=== PATIENT | female | born 1990 | race American Indian/Alaskan Native ===

== ENCOUNTER 2020-06-14 17:12 | Emergency (ER) | payer OTHER ==
[2020-06-14 17:51] LABS: Bilirubin,Urine NEG (Negative); Blood,Urine NEG (Negative); Color,Urine Yellow (Yellow); Mucus,Urine 1+ /HPF; Protein,Urine <15 mg/dL mg/dL (Negative)
[2020-06-14 18:54] LABS: Basophils % (Auto) 0.7 % (0.0-1.8); Eosinophils % (Auto) 0.2 % (0.0-4.3); Hematocrit 36.2 % (30.3-42.9); Hemoglobin 12.8 gm/dl (10.1-14.3); Lymphocytes # (Auto) 1.4 K/mm3 (1.2-5.4); Lymphocytes % (Auto) 21.1 % (13.4-35.0); Mean Corpuscular HGB Conc 35 % (30-34); Mean Corpuscular Volume 95 fl (79-97); Monocytes # (Auto) 0.8 K/mm3 (0.0-0.8); Monocytes % (Auto) 11.8 % (0.0-7.3); Platelet Count 293 K/mm3 (140-440); Red Blood Count 3.81 M/mm3 (3.65-5.03); Red Cell Distribution Width 12.7 % (13.2-15.2)
[2020-06-14 18:59] LABS: Alanine Aminotransferase 10 units/L (7-56); Albumin 4.3 g/dL (3.9-5); Blood Urea Nitrogen 6 mg/dL (7-17); Calcium 9.9 mg/dL (8.4-10.2); Hemolysis Index 2
[2020-06-14 19:00] LABS: BUN/Creatinine Ratio 12
[2020-06-14 19:07] VITALS: BP 119/79
[2020-06-14] MEDS ORDERED: diphenhydrAMINE 50 MG/ML VIAL IV ONE (21:56)
[2020-06-14] MEDS ORDERED: METOCLOPRAMIDE 10 MG/2 ML INJ IV ONE (21:56)
[2020-06-14] MEDS ORDERED: SODIUM CHLORIDE 0.9% 1000 ML 1,000 ML IV ONE (21:56)
[2020-06-14] MEDS ORDERED: FAMOTIDINE 20 MG/2 ML INJ IV ONE (21:56)
--- NOTE | 2020-06-14 22:54 | Emergency Department Report ---
ED N/V/D HPI - General Chief complaint: Nausea/Vomiting/Diarrhea Stated complaint: PANIC ATTACK/JOINTS LOCKED Source: patient Mode of arrival: Ambulatory Limitations: No Limitations - History of Present Illness Initial comments: Patient is a A0 29-year-old -Stateless female who is approximately 11 weeks gestation who presents to the ED with complaint of acute onset persistent intractable nausea and vomiting for the last 7 days but worse in the last 2 days. Patient states that she has not been able to keep anything down including food and water in the last 2 days. Patient states that she was given a prescription of antiemetics, Zofran by her PROGRAMMER ANALYST physician but that this medicine has not helped control her nausea and vomiting. Patient also complains of diffuse body aches and pains as well as joint pains. Patient denies abdominal pain, dizziness, syncope, chest pain, shortness of breath, fever, chills, dysuria, urinary frequency and urgency, vaginal bleeding, vaginal discharge, sore throat, headache, change in vision or dyspareunia. MD complaint: nausea, vomiting -: Sudden, week(s) (1) Description of Vomiting: food contents, watery Associated Abdominal Pain: No Radiation: none Severity: moderate Pain Scale: 6 Quality: dull Consistency: intermittent Improves with: none Worsens with: eating, vomiting Context: other ( related nausea and vomiting) Associated Symptoms: denies other symptoms, myalgias, loss of appetite, malaise, nausea/vomiting. denies: chest pain, cough, diaphoresis, fever/chills, headaches, rash, dysuria, shortness of breath, syncope, weakness, other - Related Data Home Medications Medication Instructions Recorded Confirmed Last Taken Calcium Carbonate [Tums] 1,000 mg PO PRN 03/09/14 05/13/14 05/12/14 10:00 1 tab Vit 90/Iron Fum/Folic 1 each PO QDAY 03/09/14 05/13/14 05/12/14 10:00 [ Formula] 1 tab Previous Rx's Medication Instructions Recorded Last Taken Type Docusate Sodium [Colace] 100 mg PO BID PRN #60 capsule 05/13/14 Unknown Rx Ibuprofen [Motrin 800 MG tab] 800 mg PO Q8H PRN #30 tablet 05/13/14 Unknown Rx oxyCODONE /ACETAMINOPHEN [Percocet 1 tab PO Q6HR PRN #30 tablet 05/13/14 Unknown Rx 5/325] Ibuprofen [Motrin] 800 mg PO Q8H PRN #60 tablet 11/16/14 Unknown Rx cephALEXin [Keflex] 500 mg PO TID #21 capsule 11/16/14 Unknown Rx Famotidine [Pepcid] 20 mg PO BID #20 tablet 03/15/16 Unknown Rx diphenhydrAMINE [Benadryl CAP] 25 mg PO Q6HR PRN #20 capsule 03/15/16 Unknown Rx methylPREDNISolone [Medrol] 4 mg PO DAILY #1 tab.ds.pk 03/15/16 Unknown Rx Famotidine [Pepcid] 20 mg PO BID #30 tablet 06/15/20 Unknown Rx Metoclopramide [Reglan] 10 mg PO Q8H PRN #30 tab 06/15/20 Unknown Rx Promethazine HCl [Phenergan SUPPOS] 25 mg RC Q6H PRN #20 supp.rect 06/15/20 Unknown Rx Allergies Allergy/AdvReac Type Severity Reaction Status Date / Time No Known Allergies Allergy Verified 04/15/14 21:38 ED Review of Systems ROS: Stated complaint: PANIC ATTACK/JOINTS LOCKED Other details as noted in HPI Constitutional: denies: chills, fever Eyes: denies: eye pain, eye discharge, vision change ENT: denies: ear pain, throat pain Respiratory: denies: cough, shortness of breath, wheezing Cardiovascular: denies: chest pain, palpitations Endocrine: no symptoms reported Gastrointestinal: nausea, vomiting. denies: abdominal pain, diarrhea Genitourinary: denies: urgency, dysuria, discharge Musculoskeletal: denies: back pain, joint swelling, arthralgia Skin: denies: rash, lesions Neurological: denies: headache, weakness, paresthesias Psychiatric: denies: anxiety, depression Hematological/Lymphatic: denies: easy bleeding, easy bruising ED Past Medical Hx - Past Medical History Previous Medical History?: Yes Hx Hypertension: No Hx Congestive Heart Failure: No Hx Diabetes: No Hx Deep Vein Thrombosis: No Hx Renal Disease: No Hx Sickle Cell Disease: No Hx Seizures: No Hx Asthma: No Hx COPD: No Hx HIV: No Additional medical history: NEPHROTIC SYNDROME - Surgical History Past Surgical History?: Yes Additional Surgical History: x 2 - Social History Smoking Status: Current Some Day Smoker Substance Use Type: Alcohol - Medications Home Medications: Home Medications Medication Instructions Recorded Confirmed Last Taken Type Calcium Carbonate [Tums] 1,000 mg PO PRN 03/09/14 05/13/14 05/12/14 10:00 History 1 tab Vit 90/Iron Fum/Folic 1 each PO QDAY 03/09/14 05/13/14 05/12/14 10:00 History [ Formula] 1 tab Docusate Sodium [Colace] 100 mg PO BID PRN #60 capsule 05/13/14 Unknown Rx Ibuprofen [Motrin 800 MG tab] 800 mg PO Q8H PRN #30 tablet 05/13/14 Unknown Rx oxyCODONE /ACETAMINOPHEN [Percocet 1 tab PO Q6HR PRN #30 tablet 05/13/14 Unknown Rx 5/325] Ibuprofen [Motrin] 800 mg PO Q8H PRN #60 tablet 11/16/14 Unknown Rx cephALEXin [Keflex] 500 mg PO TID #21 capsule 11/16/14 Unknown Rx Famotidine [Pepcid] 20 mg PO BID #20 tablet 03/15/16 Unknown Rx diphenhydrAMINE [Benadryl CAP] 25 mg PO Q6HR PRN #20 capsule 03/15/16 Unknown Rx methylPREDNISolone [Medrol] 4 mg PO DAILY #1 tab.ds.pk 03/15/16 Unknown Rx Famotidine [Pepcid] 20 mg PO BID #30 tablet 06/15/20 Unknown Rx Metoclopramide [Reglan] 10 mg PO Q8H PRN #30 tab 06/15/20 Unknown Rx Promethazine HCl [Phenergan SUPPOS] 25 mg RC Q6H PRN #20 supp.rect 06/15/20 Unknown Rx ED Physical Exam - General Limitations: No Limitations General appearance: alert, in no apparent distress - Head Head exam: Present: atraumatic, normocephalic, normal inspection - Eye Eye exam: Present: normal appearance, PERRL, EOMI Pupils: Present: normal accommodation - ENT ENT exam: Present: normal exam, normal orophraynx, mucous membranes moist, TM's normal bilaterally, normal external ear exam - Neck Neck exam: Present: normal inspection, full ROM - Respiratory Respiratory exam: Present: normal lung sounds bilaterally. Absent: respiratory distress, wheezes, rales, rhonchi, stridor, chest wall tenderness, accessory muscle use, decreased breath sounds - Cardiovascular Cardiovascular Exam: Present: regular rate, normal rhythm, normal heart sounds. Absent: systolic murmur, diastolic murmur, rubs, gallop - GI/Abdominal GI/Abdominal exam: Present: soft, normal bowel sounds. Absent: tenderness, guarding, rebound, hyperactive bowel sounds, hypoactive bowel sounds, organomegaly - Extremities Exam Extremities exam: Present: normal inspection, full ROM, normal capillary refill - Back Exam Back exam: Present: normal inspection, full ROM. Absent: tenderness, CVA tenderness (R), muscle spasm, paraspinal tenderness, vertebral tenderness - Neurological Exam Neurological exam: Present: alert, oriented X3, CN II-XII intact, normal gait, reflexes normal - Psychiatric Psychiatric exam: Present: normal affect, normal mood - Skin Skin exam: Present: warm, dry, intact, normal color. Absent: rash ED Course Vital Signs 06/14/20 17:28 Temperature 98.8 F Pulse Rate 84 Respiratory 18 Rate Blood Pressure 119/79 O2 Sat by Pulse 100 Oximetry ED Medical Decision Making - Lab Data Result diagrams: 06/14/20 17:57 06/14/20 17:57 - Medical Decision Making This is a A0 29-year-old -Stateless female who is approximately 11 weeks gestation who presents to the ED with complaint of acute onset persistent intractable nausea and vomiting for the last 7 days but worse in the last 2 days. Patient states that she has not been able to keep anything down including food and water in the last 2 days. Patient states that she was given a prescription of antiemetics, Zofran by her PROGRAMMER ANALYST physician but that this medicine has not helped control her nausea and vomiting. Patient also complains of diffuse body aches and pains as well as joint pains. In the ED, patient is alert and oriented x3 and is not in distress, with normal vital signs. Lab test results were reviewed and showed mild hyponatremia of 135 mmol/L and mild hypokalemia of 3.4 mmol/L. The hCG quant was [id number]. Urinalysis results were nonactionable. Patient received antiemetics in the ED, also received normal saline 1 L IV bolus x1 as well as antacids. Patient was also treated with Tylenol subsequently after controlling her nausea and vomiting episodes. On reevaluation, patient felt better, nausea and vomiting resolved and patient was able to keep oral fluids in the ED. Patient was discharged home on antiemetics and antacids, and was advised to follow-up with her PROGRAMMER ANALYST physician in 5 to 7 days for reevaluation. Patient was also advised to maintain a clear liquid diet for 12 to 24 hours, and take the medication as advised. Patient was advised return to the ED immediately if symptoms get worse. - Differential Diagnosis Hyperemesis gravidarum; dehydration; viral syndrome; gastroenteritis; UTI Critical care attestation.: If time is entered above; I have spent that time in minutes in the direct care of this critically ill patient, excluding procedure time. ED Disposition Clinical Impression: Hyperemesis gravidarum Disposition: - TO HOME OR SELFCARE Is pt being admited?: No Does the pt Need Aspirin: No Condition: Stable Instructions: Hyperemesis Gravidarum (ED) Additional Instructions: All lab test results are unremarkable. Therefore maintain a clear liquid diet for 12 to 24 hours, take medication as advised for nausea and vomiting and pain, and follow-up with your PROGRAMMER ANALYST physician in 5 to 7 days for reevaluation. R eturn to the ED immediately if symptoms get worse. Prescriptions: Famotidine [Pepcid] 20 mg PO BID #30 tablet Promethazine HCl [Phenergan SUPPOS] 25 mg RC Q6H PRN #20 supp.rect PRN Reason: Nausea Metoclopramide [Reglan] 10 mg PO Q8H PRN #30 tab PRN Reason: Nausea Referrals: WANDA MALDONADO MD [Primary Care Provider] - 3-5 Days Forms: Work/School Release Form(ED) Time of Disposition: 22:56 Print Language: LATVIAN
== END 2020-06-15 02:33 | disposition home or self-care (01) ==
LOC: ED 17:12
DX: O21.0 Mild hyperemesis gravidarum (principal); O99.331 Smoking (tobacco) complicating pregnancy, first trimester; Z3A.11 11 weeks gestation of pregnancy; Z79.899 Other long term (current) drug therapy; Z98.890 Other specified postprocedural states
CPT/HCPCS: 36415; 80053; 81001; 84702; 85025; 96361; 96374; 96375; 99283; J1200; J2765; J7030

== ENCOUNTER 2020-08-01 13:22 | Outpatient (CLI) | payer OTHER ==
--- NOTE | 2020-08-01 15:06 | Ultrasound Report ---
ULTRASOUND BREAST BILATERAL COMPLETE, 08/01/2020 CLINICAL INFORMATION / INDICATION: Right milky nipple discharge after removal of a nipple piercing ap proximately 8 months ago. Noted is soft tissue protrusion at 1 of the piercing sites approximately 3 weeks ago. 16 weeks . TECHNIQUE: Complete sonographic evaluation of all 4 quadrants and retroareolar region was performed. COMPARISON: None. FINDINGS: There is a localized hypoechoic abnormality in the right subareolar region which is probably complex cystic. No posterior features are seen and there is no internal vascularity on Doppler exam. The abno rmality measures approximately 1.7 cm in greatest dimension and extends from the subareolar region to the skin margin. No other abnormality is seen in the right breast. No abnormality is identified in the left breast. IMPRESSION: 1.7 cm hypoechoic abnormality in the right subareolar region which extends to the skin. T he findings are probably related to localized inflammatory process in view of the history of removal of a skin piercing at this site. Depending on clinical findings, short-term sonographic follow-up aft er appropriate antibiotic therapy is recommended. Follow up recommendation: Ultrasound BI-RADS Category 3: Probably Benign. Followup in 3 months. A normal or "negative" report should not preclude biopsy or follow-up of a clinically suspicious find ing. Signer Name: Osmin Bacon MD Signed: 08/01/2020 3:01 PM Workstation Name: [email or web address]
== END 2020-08-01 13:23 | disposition home or self-care (01) ==
LOC: SPVWC 13:22
PROVIDERS: ATTEND Surgery
DX: N64.89 Other specified disorders of breast (principal); Z80.3 Family history of malignant neoplasm of breast

== ENCOUNTER 2020-08-29 15:54 | Outpatient (CLI) | payer OTHER ==
[2020-08-29 16:39] VITALS: BP 111/65
[2020-08-29] MEDS ORDERED: LACTATED RINGERS 1,000 ML IV SCH (16:45)
[2020-08-29 17:10] LABS: Bilirubin,Urine NEG (Negative); Blood,Urine NEG (Negative); Color,Urine Yellow (Yellow); Mucus,Urine FEW /HPF; Protein,Urine <15 mg/dL mg/dL (Negative); RBC,Urine < 1.0 /HPF (0.0-6.0); Urobilinogen,Urine < 2.0 mg/dL (<2.0); WBC,Urine < 1.0 /HPF (0.0-6.0)
--- NOTE | 2020-08-29 20:12 | Ultrasound Report ---
ULTRASOUND OBSTETRIC LIMITED INDICATION / CLINICAL INFORMATION: pain. Pain during . Evaluate cervical length. Clinical Gestational Age (GA) in weeks, days: 20, 30 TECHNIQUE: Transvaginal. COMPARISON: None available. FINDINGS: HEART RATE (beats per minute): 159 PRESENTATION: Cephalic. ADDITIONAL FINDINGS: Cervical length is 3.2 cm. Internal cervical os is closed. No cervical funneling . IMPRESSION: 1. Normal cervical length with closed internal cervical os. Signer Name: Ying Flores MD Signed: 08/29/2020 8:07 PM Workstation Name: [id number]
== END 2020-08-29 21:00 | disposition home or self-care (01) ==
LOC: TRG 15:54 → APU 15:58 → TRG 21:00
PROVIDERS: ATTEND Obstetrics & Gynecology
DX: O26.892 Other specified pregnancy related conditions, second trimester (principal); M54.5 Low back pain; R10.9 Unspecified abdominal pain; M79.606 Pain in leg, unspecified; O47.02 False labor before 37 completed weeks of gestation, second trimester; Z3A.20 20 weeks gestation of pregnancy
CPT/HCPCS: 59025; 76815; 76817; 81001; 96360; 96361; J7120

== ENCOUNTER 2020-10-03 08:42 | Outpatient (CLI) | payer BC, OTHER ==
--- NOTE | 2020-10-03 09:55 | Ultrasound Report ---
ULTRASOUND BREAST RIGHT LIMITED, 10/03/2020 CLINICAL INFORMATION / INDICATION: Follow-up abnormal ultrasound. TECHNIQUE: Targeted ultrasound evaluation was performed of the area of interest. COMPARISON: 08/01/2020 FINDINGS: In 9:00 position at the nipple there is a 9 mm nodule which protrudes through the skin. This extends from the retroareolar area. It is hypervascular. The 1.7 x 1 cm retroareolar hypoechoic abnormality n oted on the prior study is not apparent on today's exam. IMPRESSION: There is a 9 mm nodule which protrudes along the nipple margin in the 9:00 position of th e right breast. This is hypervascular and was not imaged on the prior study. This could represent a i nflammatory nodule. This could represent a vascular lesion. Clinical correlation is recommended as th is should be visible. Follow up recommendation: Clinical exam BI-RADS Category 3: Probably Benign. Followup in 3 months. A normal or "negative" report should not preclude biopsy or follow-up of a clinically suspicious find ing. Signer Name: Quintin Murcia MD Signed: 10/03/2020 9:50 AM Workstation Name: [id number]
== END 2020-10-03 08:43 | disposition home or self-care (01) ==
LOC: SPVWC 08:42
PROVIDERS: ATTEND Surgery
DX: N63.11 Unspecified lump in the right breast, upper outer quadrant (principal)

== ENCOUNTER 2020-10-25 16:39 | Outpatient (CLI) | payer BC ==
[2020-10-25 17:16] VITALS: BP 114/63
[2020-10-25] MEDS ORDERED: LACTATED RINGERS 1,000 ML IV SCH (17:30)
[2020-10-25 17:47] LABS: Bilirubin,Urine NEG (Negative); Blood,Urine NEG (Negative); Color,Urine Yellow (Yellow); Mucus,Urine FEW /HPF; Protein,Urine <15 mg/dL mg/dL (Negative); Urobilinogen,Urine < 2.0 mg/dL (<2.0); WBC,Urine < 1.0 /HPF (0.0-6.0)
[2020-10-25] MEDS ORDERED: diphenhydrAMINE 50 MG CAP PO NR ×2 (20:48→21:00)
[2020-10-25] MEDS ORDERED: diphenhydrAMINE 25 MG CAP PO NR (21:00)
== END 2020-10-25 21:05 | disposition home or self-care (01) ==
LOC: TRG 16:39 → APU 16:41 → TRG 21:05
PROVIDERS: ATTEND Obstetrics & Gynecology
DX: O26.893 Other specified pregnancy related conditions, third trimester (principal); R10.9 Unspecified abdominal pain; M54.9 Dorsalgia, unspecified; O47.03 False labor before 37 completed weeks of gestation, third trimester; Z3A.28 28 weeks gestation of pregnancy
CPT/HCPCS: 36415; 59025; 81001; 82731; 96360; 96361; J7120

== ENCOUNTER 2020-11-07 17:58 | Outpatient (CLI) | payer BC ==
[2020-11-07 18:23] VITALS: BP 103/61
--- NOTE | 2020-11-07 20:56 | Ultrasound Report ---
Limited OB Ultrasound Biophysical profile HISTORY: DECREASED MOVEMENT. TECHNIQUE: Grayscale and color imaging performed. COMPARISON: OB ultrasound from 08/29/2020 FINDINGS: There is a single viable intrauterine gestation with cephalic presentation. JERMAINE is 8 cm. He art rate is 162 bpm. On biophysical profile, the fetus received a score of 2 out of 2 for breathing, movement, posture/ton e, and JERMAINE. Total score was 8 out of 8. IMPRESSION: 1. Single viable intrauterine gestation with normal JERMAINE and cephalic presentation. 2. Normal BPP. Signer Name: Humphrey Miller MD Signed: 11/07/2020 8:52 PM Workstation Name: [id number]
== END 2020-11-07 19:49 | disposition home or self-care (01) ==
LOC: TRG 17:58 → APU 18:01 → TRG 19:49
PROVIDERS: ATTEND Obstetrics & Gynecology
DX: O36.8130 Decreased fetal movements, third trimester, not applicable or unspecified (principal); Z3A.30 30 weeks gestation of pregnancy
CPT/HCPCS: 59025; 76815; 76819

== ENCOUNTER 2020-11-13 11:48 | Outpatient (CLI) | payer BC ==
[2020-11-13] MEDS ORDERED: LACTATED RINGERS 1,000 ML IV SCH (12:00)
[2020-11-13 12:01] VITALS: BP 107/67
[2020-11-13 12:22] LABS: Bilirubin,Urine NEG (Negative); Blood,Urine NEG (Negative); Color,Urine Yellow (Yellow); Mucus,Urine FEW /HPF; Protein,Urine <15 mg/dL mg/dL (Negative); Urobilinogen,Urine < 2.0 mg/dL (<2.0)
[2020-11-13 12:29] LABS: WBC,Urine < 1.0 /HPF (0.0-6.0)
[2020-11-13 13:02] LABS: Amphetamine Screen,Urine Negative; Benzodiazepines Screen,Urine Negative; Cocaine Screen,Urine Negative; Methadone Screen,Urine Negative; Opiate Screen,Urine Negative
[2020-11-13 13:17] LABS: Cannabinoid Screen,Urine PRESUMPTIVE POSITIVE
== END 2020-11-13 14:05 | disposition home or self-care (01) ==
LOC: TRG 11:48 → APU 11:49 → TRG 14:05
PROVIDERS: ATTEND Obstetrics & Gynecology
DX: O26.893 Other specified pregnancy related conditions, third trimester (principal); M54.5 Low back pain; O47.03 False labor before 37 completed weeks of gestation, third trimester; R11.0 Nausea; Z3A.31 31 weeks gestation of pregnancy
CPT/HCPCS: 59025; 80307; 81001; 96360; 96361; J7120

== ENCOUNTER 2020-12-29 11:52 | Outpatient (CLI) | payer BC ==
[2020-12-29] MEDS ORDERED: ACETAMINOPHEN 500 MG TAB PO ONE (12:24)
[2020-12-29 12:51] LABS: Hematocrit 34.9 % (30.3-42.9); Hemoglobin 12.2 gm/dl (10.1-14.3); Mean Corpuscular HGB Conc 35 % (30-34); Mean Corpuscular Volume 101 fl (79-97); Red Blood Count 3.45 M/mm3 (3.65-5.03); Red Cell Distribution Width 13.7 % (13.2-15.2)
[2020-12-29 12:56] LABS: Platelet Count 181 K/mm3 (140-440)
[2020-12-29 13:06] LABS: Bilirubin,Urine NEG (Negative); Blood,Urine NEG (Negative); Color,Urine Straw (Yellow); Protein,Urine <15 mg/dL mg/dL (Negative); Urobilinogen,Urine < 2.0 mg/dL (<2.0); WBC,Urine < 1.0 /HPF (0.0-6.0)
[2020-12-29 13:09] LABS: Alanine Aminotransferase 7 units/L (7-56); Uric Acid 5.6 mg/dL (3.5-7.6)
[2020-12-29 15:45] VITALS: BP 108/72
[2020-12-29] MEDS ORDERED: BUTALB/ACETAMINOPHEN/CAFFEINE TAB PO PRN (15:47)
== END 2020-12-29 17:08 | disposition home or self-care (01) ==
LOC: TRG 11:52 → APU 11:54 → TRG 17:08
PROVIDERS: ATTEND Obstetrics & Gynecology
DX: Z34.93 Encounter for supervision of normal pregnancy, unspecified, third trimester (principal); Z3A.37 37 weeks gestation of pregnancy
CPT/HCPCS: 36415; 59025; 81001; 82565; 83615; 84450; 84460; 84550; 85027

== ENCOUNTER 2020-12-30 11:52 | Outpatient (CLI) | payer BC ==
--- NOTE | 2020-12-30 13:11 | Event Note ---
Date: 12/30/20 (pt presents today with continued c/o SEGAL 03/10) Pt called this AM with elevated BP @ home 150/100 and SEGAL 03/10. Instructed to come to Triage. BPs here 130-120/80-70 Continues to c/o SEGAL 03/10 Reorts good FM No ctx reported nor recorded, Cat 1 strip NST reactive Will get CT of head. Then re-eval for POC. Dr Reddy text head CT wnl Good response to fioricet will make appt in office for preop
--- NOTE | 2020-12-30 14:09 | Cat Scan Report ---
CT HEAD WITHOUT CONTRAST INDICATION / CLINICAL INFORMATION: Persistent Headache. TECHNIQUE: All CT scans at this location are performed using CT dose reduction for ALARA by means of automated e xposure control. COMPARISON: None available. FINDINGS: There is no acute intracranial hemorrhage. Ventricles are normal in size without midline shift or mas s effect. No extra-axial fluid collection is seen. Sella and pituitary visualized appear normal. Jayro us callosum appears normal. ADDITIONAL FINDINGS: None. IMPRESSION: 1. No acute intracranial abnormality. Signer Name: Swapnil Teixeira MD Signed: 12/30/2020 2:04 PM Workstation Name: [id number]
[2020-12-30] MEDS ORDERED: BUTALB/ACETAMINOPHEN/CAFFEINE TAB PO PRN (14:24)
[2020-12-30 15:09] VITALS: BP 130/85
[2020-12-30 15:48] LABS: Bilirubin,Urine NEG (Negative); Blood,Urine NEG (Negative); Color,Urine Yellow (Yellow); Mucus,Urine FEW /HPF; Protein,Urine <15 mg/dL mg/dL (Negative); Urobilinogen,Urine < 2.0 mg/dL (<2.0)
== END 2020-12-30 15:11 | disposition home or self-care (01) ==
LOC: TRG 11:52 → APU 11:52 → TRG 15:11
PROVIDERS: ATTEND Obstetrics & Gynecology
DX: O26.893 Other specified pregnancy related conditions, third trimester (principal); O13.3 Gestational [pregnancy-induced] hypertension without significant proteinuria, third trimester; G44.89 Other headache syndrome; Z3A.38 38 weeks gestation of pregnancy
CPT/HCPCS: 59025; 70450; 81001

== ENCOUNTER 2021-01-08 05:15 | Inpatient (IN) | payer BC ==
--- NOTE | 2021-01-07 15:05 | History and Physical Report ---
History of Present Illness Date of examination: 01/01/21 History of present illness: Menstrual History Regularity: regular Menses every: 28-30 days Duration: 4-6 LMP: 04/08/2020 LMP reliability: definite LMP character: normal test type: urine test Date: 06/01/2020 BC at conception: none Planned ? yes EDC Calculations LMP: 01/13/2021 EDC Confirmation: 01/13/2021 Past History : 5 Term Births: 2 Premature Births: 0 Living Children: 2 Para: 2 Mult. Births: 0 Prev : 2 Aborta: 2 Elect. Ab: 2 Spont. Ab: 0 Ectopics: 0 # 1 Delivery date: 12/09/2010 Weeks Gestation: 39 Delivery type: Hours of labor: 15 Anesthesia type: epidural Delivery location: [facility] Sex: male weight: 6.19 Name: Leobardo Comments: Failure of dilatation # 2 Delivery date: 2011 Weeks Gestation: - Delivery type: EAB Anesthesia type: - Delivery location: - Infant Sex: - weight: - # 3 Delivery date: 05/13/2014 Weeks Gestation: 38 Delivery type: Anesthesia type: epidural Delivery location: [facility] Sex: Female weight: 6.19 # 4 Delivery date: 2018 Delivery type: EAB Past Medical History: h/o Nephrotic syndrome hospitalized for rhabdomyalgia, 2015, 2017 Past Surgical History: positive, LEEP/ Appendectomy c/s x2 Past Medical History Abnormal PAP: negative COMPA Exposure: negative Infertility: negative Uterine Anomaly: negative Uterine Surgery (not C/S): negative Other Gynecologic Problems: negative Social Hx: Patient is single Infection History Hx of STD: none HIV Risk Eval: low risk Hepatitis B Risk Eval: low risk Personal hx. of genital herpes: no Partner hx. of genital herpes: no Rash, Viral, or Febrile illness since last LMP? no Varicella/Chicken Pox Status: Immunized Genetic History Congenital Heart Defect: Mom: no Dad: no Dick Disease: Mom: no Dad: no Thalassemia Mom: no Dad: no Neural Tube Defect Mom: no Dad: no Down's Syndrome Mom: no Dad: no Sumeet-Sachs Mom: no Dad: no Sickle Cell Disease/Trait Mom: no Dad: no Hemophilia Mom: no Dad: no Muscular Dystrophy Mom: no Dad: no Cystic Fibrosis Mom: no Dad: no Tali Chorea Mom: no Dad: no Mental Retardation Mom: no Dad: no Fragile X Mom: no Dad: no Other Genetic/Chromosomal Disorder Mom: no Dad: no Child w/other defect Mom: no Dad: no Enviromental Exposures Xray Exposure: no Medication, drug, or alcohol use since LMP: no Chemical/Other Exposure: no Exposure to Cat Liter: no Hx of Parvovirus (Fifth Disease): no Occupational Exposure to Children: none Current Allergies (reviewed today): No known allergies Past History Past Medical History: other (SEE HPI FOR DETAILS) Past Surgical History: section, other (SEE HPI FOR DETAILS) [employer] History: other (SEE HPI FOR DETAILS) Family/Genetic History: other (SEE HPI FOR DETAILS) Social history: full code, other (SEE HPI FOR DETAILS) - Obstetrical History Expected Date of Delivery: 01/13/21 Actual Gestation: 39 Week(s) 1 Day(s) : 5 Para: 2 Hx # Term Pregnancies: 2 Number of Pregnancies: 0 Spontaneous Abortions: 0 Induced : 2 Number of Living Children: 2 Medications and Allergies Allergies Allergy/AdvReac Type Severity Reaction Status Date / Time No Known Allergies Allergy Verified 04/15/14 21:38 Home Medications Medication Instructions Recorded Confirmed Last Taken Type Vit 90/Iron Fum/Folic 1 each PO QDAY 03/09/14 12/30/20 12/29/20 History [ Formula] Aspirin 1 tab PO DAILY 12/29/20 12/30/20 12/29/20 History Review of Systems Constitutional: other (SEE HPI FOR DETAILS) - Physical Exam Breasts: Positive: deferred Cardiovascular: Regular rate Lungs: Positive: Normal air movement Abdomen: Positive: normal appearance Genitourinary (Female): Positive: normal external genitalia Uterus: Positive: enlarged Anus/Rectum: Positive: normal perianal skin Extremities: Positive: edema - Obstetrical FHR: auscultation normal Uterine Contraction Pattern: Absent Uterine Tone Measurement Phase: Resting Results All other labs normal. Assessment and Plan - Patient Problems (1) Previous delivery affecting , antepartum Status: Acute Plan to address problem: Discuss the risks of the surgery including infection, bleeding possibly heavy enough to require a blood transfusion, possible damage to bowel, bladder or ureter. Her questions were answered. Patient understands and desires to proceed The patient was instructed/informed (2) 39 weeks gestation of Status: Acute
[2021-01-08] MEDS ORDERED: BICITRA ORAL LIQD 30ML PO ONE (05:30)
[2021-01-08] MEDS ORDERED: METOCLOPRAMIDE 10 MG/2 ML INJ IV ONE (05:30)
[2021-01-08] MEDS ORDERED: FAMOTIDINE 20 MG/2 ML INJ IV ONE (05:30)
[2021-01-08] MEDS: LACTATED RINGERS 1,000 ML IV SCH ×3 (05:50→17:49)
[2021-01-08 06:15] LABS: Basophils # (Auto) 0.1 K/mm3 (0.0-0.1); Basophils % (Auto) 0.9 % (0.0-1.8); Eosinophils # (Auto) 0.1 K/mm3 (0.0-0.4); Eosinophils % (Auto) 1.2 % (0.0-4.3); Hematocrit 37.3 % (30.3-42.9); Hemoglobin 12.9 gm/dl (10.1-14.3); Lymphocytes # (Auto) 3.1 K/mm3 (1.2-5.4); Lymphocytes % (Auto) 41.7 % (13.4-35.0); Mean Corpuscular HGB Conc 35 % (30-34); Mean Corpuscular Volume 100 fl (79-97); Monocytes # (Auto) 0.7 K/mm3 (0.0-0.8); Monocytes % (Auto) 10.1 % (0.0-7.3); Red Blood Count 3.73 M/mm3 (3.65-5.03); Red Cell Distribution Width 13.6 % (13.2-15.2)
[2021-01-08 06:26] LABS: Platelet Count 202 K/mm3 (140-440)
--- NOTE | 2021-01-08 06:56 | Anesthesia Consultation ---
Anesthesia Consult and Med Hx Date of service: 01/08/21 - Airway Anesthetic Teeth Evaluation: Good ROM Head & Neck: Adequate Mental/Hyoid Distance: Adequate Mallampati Class: Class II Intubation Access Assessment: Probably Good - Pulmonary Exam CTA: Yes - Cardiac Exam Cardiac Exam: RRR - Pre-Operative Health Status ASA Pre-Surgery Classification: ASA3 Proposed Anesthetic Plan: Spinal - Pulmonary Hx Smoking: Yes Hx Asthma: No COPD: No Hx Pneumonia: No - Cardiovascular System Hx Hypertension: Yes (GHTN) - Central Nervous System Hx Seizures: No Hx Psychiatric Problems: Yes (anxiety) - Endocrine Hx Renal Disease: Yes (2005 Nephrotic Syndrome 2007) Hx End Stage Renal Disease: No Hx Hypothyroidism: No Hx Hyperthyroidism: No - Hematic Hx Anemia: Yes Hx Sickle Cell Disease: No - Other Systems Hx Alcohol Use: No Hx Substance Use: Yes (Marijuana)
--- NOTE | 2021-01-08 06:56 | Anesthesia Day of Surgery ---
Anesthesia Day of Surgery - Day of Surgery Patient Examined: Yes Patient H&P Reviewed: Yes Patient is NPO: Yes
[2021-01-08] MEDS ORDERED: ceFAZolin/Water 2 GM/20 ML 2 GM/20 ML SYRINGE IV NR (07:00)
[2021-01-08] MEDS ORDERED: METHYLERGONOVINE MALEATE 0.2 MG/ML VIAL IM ONE (07:10)
[2021-01-08] MEDS ORDERED: miSOPROStol 200 MCG TAB ONE (07:10)
[2021-01-08] MEDS ORDERED: ceFAZolin/STERILE WATER 2 GM/20 ML SYRINGE IV ONE (07:53)
[2021-01-08] MEDS ORDERED: OXYTOCIN DRIP 30 UNITS/500 ML BAG IV SCH ×2 (08:00→15:31)
[2021-01-08] MEDS ORDERED: BUPIVACAINE/PF (0.5%) 5 MG/1 ML 30 ML VIAL INFILTRATI ONE (08:01)
[2021-01-08] MEDS ORDERED: KETOROLAC 30 MG/1 ML INJ ONE ×2 (08:01→14:48)
[2021-01-08] MEDS ORDERED: LACTATED RINGERS 1,000 ML ONE (08:01)
[2021-01-08] MEDS ORDERED: ONDANSETRON 4 MG/2 ML INJ ONE (08:01)
[2021-01-08] MEDS ORDERED: GLYCOPYRROLATE 0.4 MG/2 ML INJ ONE (08:01)
[2021-01-08] MEDS ORDERED: WATER FOR IRRIG STERILE 1,500 ML BOTTLE IR ONE (08:04)
[2021-01-08] MEDS ORDERED: SODIUM CHLORIDE 0.9% IRR 1,500 ML BOTTLE IR ONE (08:04)
--- NOTE | 2021-01-08 09:15 | Progress Note ---
Spinal Anesthesia Block - Spinal Anesthesia Block Start Time: 07:42 Stop Time: 07:44 Performed by:: JEFFRY PRINGLE Procedure: Sitting, sterile chlorahexadine 0.5% prep/drape, 1% lidocaine skin local, 25G spinal needle + introducer at L3-4, + CSF, - Heme, [1.9 ml 0.5% bupivacaine + 10 mcg dexmedetomidine] injected, drape removed, patient positioned supine with left uterine displacement, and spinal level verified to be adequate prior to surgery.
--- NOTE | 2021-01-08 09:16 | Progress Note ---
Regional Anesthesia Block - Regional Anesthesia Block Start Time: 09:05 Stop Time: :10 Performed By:: JEFFRY PRINGLE Procedure: U/S guided bilateral tap block performed for post-operative pain requested by Dr. Reddy. H&P & labs reviewed. Procedure explained, questions answered, consent obtained. Patient in the supine position with ekg, blood pressure cuff and pulse ox on and working in PACU. Timeout performed immediately before start of procedure. Probe placed in the mid-axillary line and the external oblique, internal oblique, and transverse abdominus muscles identified. Skin was cleansed with chlorahexadine 0.5% and allowed to dry. A 4" 20 G Vela echogenic needle was advanced in plane until the tip was in the fascial plane between the internal oblique and the transverse abdominus. After negative aspiration 35 ml/side of [30 ml 0.5% Bupivacaine], [10 mg dexamethasone], and [40 ml sterile saline] was injected in 5 ml increments with negative aspiration in between. Patient tolerated procedure well.
--- NOTE | 2021-01-08 09:55 | Operative Report ---
Operative Report Operative Report: Date of procedure: January 08, 2021 Pre-operative diagnosis: Intrauterine at 39 weeks with 2 previous sections Post-operative diagnosis: Same plus pelvic adhesive disease Procedure name(s): Repeat low transverse section with lysis of adhesions Surgeon: Mauricio Reddy MD Tumbling Machine Operator: Yasmin Freitas CST Anesthesia: Spinal EBL: 600 cc Complications: None Findings: Patient with thick adhesions between anterior abdominal wall and uterus also posterior adhesions of small intestines to the uterus. Thin lower uterine segment. Female infant weight 5 pounds 13 ounces Apgars 9 at 1 minute and 9 at 5 minutes. Specimen(s): None Procedure: The patient was brought to the operating room. A spinal was placed without any complications. She was then placed in left lateral tilt. Prepped and draped in the usual sterile manner. After testing for adequate anesthesia level, a Pfannenstiel incision was made through her previous scar. This incision was taken down to the fascia. The fascia was then nicked in the midline. This incision was extended out laterally with Colon scissors. The fascia was then sharply and bluntly from the underlying rectus muscles through thick adhesions. The rectus muscles were bluntly and sharply . The peritoneum was then entered with the glue reel operator's fingers. This incision was spread vertically with care not to damage the bladder below. The Magdaleno self- retaining tractor was then placed without any difficulty. The bladder flap was then formed sharply and bluntly with Metzenbaum scissors. A transverse incision was made in lower uterine segment. This incision was extended laterally with the operators fingers. The amniotic sac was then entered bluntly with the glue reel operator's fingers. The infant was delivered from the vertex position. Bulb suction on the mother's abdomen. Cord was double clamped and cut. The infant was then passed to the nursery personnel who were in attendance. The above scores were given by the nursery personnel. The placenta was then bluntly removed. The uterus was then externalized and wiped clean the remaining products. The uterine incision was closed in layers. The first incision was closed in a locking manner using 0 Vicryl. This was followed by imbricating stitch also with 0 Vicryl. This closure was hemostatic after additional [id number] sutures were placed. The bladder flap was copiously irrigated and found to be hemostatic. The pelvis was copiously irrigated and found to be hemostatic. The uterus was then placed back to the patient's abdomen. Surgicel was placed along the uterine closure. The retractors were removed. The rectus muscles were inspected and found to be hemostatic. The fascia was then closed in a running manner using 0 Vicryl. This incision was hemostatic irrigation Bovie. The skin was reapproximated with 4-0 Vicryl subcuticularly. Dermabond was placed over the skin closure. The patient tolerated procedure well. Her urine was clear. The was admitted to the well baby nursery. The patient was accompanied to recovery room in good condition. Instrument count correct x3.
--- NOTE | 2021-01-08 11:59 | Event Note ---
Date: 01/08/21 (will keep APU Start MGSO4 d/t elevated BPs) Notified by AEROSPACE ENGINEER pt's BP cont to remain in the 140/90. PIH labs ordered. Spoke with Dr Reddy MGSO4 ordered for 24hr PP All orders in EMR IRMA notified of decision to keep on L&D
[2021-01-08] MEDS ORDERED: MAGNESIUM SULFATE 4 GM/100 ML BAG IV SCH (12:30)
[2021-01-08] MEDS ORDERED: CALCIUM GLUCONATE 1000 MG/10 ML INJ IV SCH (12:30)
[2021-01-08 12:56] LABS: Alanine Aminotransferase 10 units/L (7-56); Uric Acid 5.7 mg/dL (3.5-7.6)
[2021-01-08] MEDS ORDERED: MAGNESIUM SULFATE 40GM/1000ML 40 GM/1,000 ML BAG IV SCH (13:00)
[2021-01-08 13:41] LABS: Bilirubin,Urine NEG (Negative); Blood,Urine NEG (Negative); Color,Urine Straw (Yellow); Mucus,Urine FEW /HPF; Protein,Urine <15 mg/dL mg/dL (Negative); Urobilinogen,Urine < 2.0 mg/dL (<2.0)
[2021-01-08] MEDS ORDERED: LANOLIN/ZINC/DIMETHICONE (LANSINOH) 7 GM TP PRN (15:31)
[2021-01-08] MEDS ORDERED: WITCH HAZEL/ GLYCERIN PAD TP PRN (15:31)
[2021-01-08] MEDS ORDERED: D5W/LACTATED RINGERS 1,000 ML IV SCH (15:31)
[2021-01-08] MEDS ORDERED: PRENATAL VIT27-FE FUMARATE-FOLIC ACID VIT TAB PO SCH (15:31)
[2021-01-08] MEDS ORDERED: HYDROcodone/ACETAMINOPHEN 5-325 MG TAB PO PRN (15:31)
[2021-01-08] MEDS ORDERED: NALOXONE 0.4 MG/1 ML INJ IV PRN (15:31)
[2021-01-08] MEDS: SIMETHICONE 80 MG CHEW TAB PO PRN ×2 (16:00→21:36)
[2021-01-08] MEDS: ceFAZolin/NS 1 GM/50 ML 1 GM/50 ML BAG IV SCH (16:01)
[2021-01-08 16:47] LABS: Hematocrit 34.3 % (30.3-42.9); Hemoglobin 11.7 gm/dl (10.1-14.3)
[2021-01-08] MEDS: FERROUS SULFATE 325 MG TAB PO SCH (17:15)
[2021-01-08] MEDS: KETOROLAC 30 MG/1 ML INJ IV SCH (21:31)
[2021-01-09] MEDS: ceFAZolin/NS 1 GM/50 ML 1 GM/50 ML BAG IV SCH
[2021-01-09 01:23] LABS: Hematocrit 32.4 % (30.3-42.9); Hemoglobin 11.1 gm/dl (10.1-14.3)
[2021-01-09] MEDS: HYDROcodone/ACETAMINOPHEN 5-325 MG TAB PO PRN ×4 (02:11→23:38)
[2021-01-09] MEDS: KETOROLAC 30 MG/1 ML INJ IV SCH (03:42)
--- NOTE | 2021-01-09 07:45 | Progress Note ---
Assessment and Plan day 1 postop, c/o upper abdominal pain suggestive of gas pain. Discussed with nurse to take out rossi and patient may be assisted to bathroom - staff member must be with her. I&O adequate. Will continue Mag sulfate as ordered. Incision D&I, lochia scant, fundus firm. - Patient Problems (1) delivery delivered Current Visit: Yes Status: Acute Plan to address problem: Advance diet and activity as tolerated transfer to [facility] once mag sulfate has completed. (2) Pre-eclampsia, Current Visit: Yes Status: Acute Plan to address problem: Continue mag sulate x 24hrs (d/c @ 1300) strict I&O Monitor b/p's closely Continue labetalol 200mg PO BID Subjective - Subjective Date of service: 01/09/21 Principal diagnosis: Postop day #1 s/p repeat c/s; pre-e on Mag, gas pain Patient reports: pain poorly controlled, no flatus, no bowel movement, no nauseated Objective - Vital Signs Latest vital signs: Vital Signs Temp Pulse Resp BP BP Pulse Ox 01/09/21 07:38 64 100 01/09/21 07:33 68 100 01/09/21 07:29 70 143/86 01/09/21 07:28 98.1 F 64 20 143/86 100 01/09/21 07:26 57 L 142/86 01/09/21 07:23 65 100 01/09/21 07:18 62 100 01/09/21 07:16 68 85 01/09/21 07:14 83 100 01/09/21 07:11 66 94 01/09/21 07:08 62 100 01/09/21 07:03 63 100 01/09/21 06:58 61 100 01/09/21 06:57 56 L 168/80 01/09/21 06:53 64 99 01/09/21 06:48 73 100 01/09/21 06:46 71 90 01/09/21 06:43 68 99 01/09/21 06:38 59 L 100 01/09/21 06:33 60 100 01/09/21 06:28 64 99 01/09/21 06:26 57 L 136/76 01/09/21 06:24 53 L 100 01/09/21 06:18 55 L 100 01/09/21 06:14 59 L 99 01/09/21 06:09 57 L 100 01/09/21 06:03 60 100 01/09/21 05:58 61 100 01/09/21 05:56 63 110/70 01/09/21 05:54 59 L 100 01/09/21 05:49 59 L 99 01/09/21 05:44 61 99 01/09/21 05:39 61 99 01/09/21 05:34 58 L 100 01/09/21 05:28 60 100 01/09/21 05:27 59 L 106/63 01/09/21 05:24 60 100 01/09/21 05:18 62 99 01/09/21 05:14 62 99 01/09/21 05:09 64 99 01/09/21 05:04 56 L 100 01/09/21 04:59 67 99 01/09/21 04:56 60 109/62 01/09/21 04:54 67 100 01/09/21 04:49 61 100 01/09/21 04:44 60 100 01/09/21 04:39 58 L 99 01/09/21 04:34 64 99 01/09/21 04:30 98.8 F 60 16 114/69 98 01/09/21 04:29 60 99 01/09/21 04:26 60 114/69 01/09/21 04:24 59 L 98 01/09/21 04:19 57 L 100 01/09/21 04:14 69 100 01/09/21 04:09 54 L 100 01/09/21 04:04 55 L 100 01/09/21 03:59 55 L 100 01/09/21 03:57 54 L 118/69 01/09/21 03:54 60 100 01/09/21 03:49 54 L 100 01/09/21 03:44 66 100 01/09/21 03:41 60 89 01/09/21 03:39 51 L 100 01/09/21 03:34 54 L 100 01/09/21 03:29 55 L 100 01/09/21 03:26 50 L 126/79 01/09/21 03:24 49 L 100 01/09/21 03:19 54 L 100 01/09/21 03:14 60 100 01/09/21 03:09 67 100 01/09/21 03:04 55 L 100 01/09/21 02:59 70 100 01/09/21 02:56 58 L 124/76 01/09/21 02:54 61 100 01/09/21 02:49 60 100 01/09/21 02:44 60 100 01/09/21 02:39 58 L 100 01/09/21 02:34 59 L 100 01/09/21 02:29 57 L 100 01/09/21 02:26 62 118/66 01/09/21 02:24 63 100 01/09/21 02:19 58 L 100 01/09/21 02:14 55 L 100 01/09/21 02:09 62 100 01/09/21 02:04 62 100 01/09/21 01:59 61 100 01/09/21 01:56 65 119/71 01/09/21 01:54 66 100 01/09/21 01:49 63 97 01/09/21 01:46 64 91 01/09/21 01:44 75 100 01/09/21 01:39 61 100 01/09/21 01:34 57 L 100 01/09/21 01:29 60 100 01/09/21 01:27 57 L 129/72 01/09/21 01:24 59 L 100 01/09/21 01:19 63 100 01/09/21 01:14 71 100 01/09/21 01:09 60 100 01/09/21 01:04 64 100 01/09/21 00:59 60 100 01/09/21 00:57 56 L 125/92 01/09/21 00:54 56 L 100 01/09/21 00:49 67 100 01/09/21 00:43 67 100 01/09/21 00:39 72 98 01/09/21 00:34 57 L 100 01/09/21 00:29 55 L 100 01/09/21 00:26 53 L 129/73 01/09/21 00:24 49 L 100 01/09/21 00:19 57 L 100 01/09/21 00:14 60 100 01/09/21 00:09 60 100 01/09/21 00:04 68 100 01/09/21 00:00 98 F 53 L 16 99/56 100 01/08/21 23:59 53 L 100 01/08/21 23:57 53 L 99/56 01/08/21 23:54 58 L 100 01/08/21 23:49 61 100 01/08/21 23:48 60 92 01/08/21 23:44 57 L 100 01/08/21 23:39 62 100 01/08/21 23:34 53 L 100 01/08/21 23:29 52 L 100 01/08/21 23:27 48 L 144/86 01/08/21 23:24 64 100 01/08/21 23:19 55 L 100 01/08/21 23:14 59 L 100 01/08/21 23:09 55 L 100 01/08/21 23:04 51 L 100 01/08/21 22:59 68 100 01/08/21 22:56 60 133/81 01/08/21 22:53 66 100 01/08/21 22:49 59 L 100 01/08/21 22:44 61 100 01/08/21 22:39 59 L 100 01/08/21 22:34 64 100 01/08/21 22:29 70 99 01/08/21 22:26 60 120/74 01/08/21 22:24 59 L 100 01/08/21 22:19 66 100 01/08/21 22:14 60 100 01/08/21 22:09 61 100 01/08/21 22:04 65 100 01/08/21 21:59 66 100 01/08/21 21:57 61 125/77 01/08/21 21:54 67 100 01/08/21 21:49 63 99 01/08/21 21:44 60 100 01/08/21 21:42 61 159/76 01/08/21 21:39 60 100 01/08/21 21:34 66 100 01/08/21 21:29 67 100 01/08/21 21:27 65 159/76 01/08/21 21:24 64 100 01/08/21 21:19 61 100 01/08/21 21:14 59 L 100 01/08/21 21:09 58 L 100 01/08/21 21:04 61 100 01/08/21 20:59 65 100 01/08/21 20:56 59 L 131/76 01/08/21 20:54 64 100 01/08/21 20:49 61 100 01/08/21 20:44 68 100 01/08/21 20:39 68 100 01/08/21 20:34 59 L 100 01/08/21 20:30 98.3 F 58 L 16 124/79 100 01/08/21 20:29 58 L 100 01/08/21 20:26 58 L 124/79 01/08/21 20:24 68 100 01/08/21 20:19 58 L 100 01/08/21 20:14 62 100 01/08/21 20:09 64 100 01/08/21 20:04 61 100 01/08/21 19:59 62 100 01/08/21 19:56 55 L 137/79 01/08/21 19:54 62 100 01/08/21 19:49 56 L 100 01/08/21 19:44 58 L 100 01/08/21 19:39 63 100 01/08/21 19:34 64 100 01/08/21 19:29 60 100 01/08/21 19:27 60 131/71 01/08/21 19:24 58 L 100 01/08/21 19:19 59 L 100 01/08/21 19:14 56 L 100 01/08/21 19:09 61 100 01/08/21 19:04 60 100 01/08/21 18:59 57 L 100 01/08/21 18:57 55 L 119/56 01/08/21 18:54 54 L 100 01/08/21 18:52 59 L 132/74 01/08/21 18:49 56 L 100 01/08/21 18:44 57 L 100 01/08/21 18:39 57 L 100 01/08/21 18:34 54 L 100 01/08/21 18:29 63 100 01/08/21 18:24 62 100 01/08/21 18:19 98.4 F 62 19 97 01/08/21 18:14 62 100 01/08/21 18:09 61 100 01/08/21 18:04 57 L 100 01/08/21 17:59 58 L 100 01/08/21 17:57 53 L 122/71 01/08/21 17:54 59 L 100 01/08/21 17:49 56 L 100 01/08/21 17:44 68 100 01/08/21 17:39 61 100 01/08/21 17:34 60 100 01/08/21 17:30 16 01/08/21 17:29 56 L 100 01/08/21 17:26 49 L 153/85 01/08/21 17:24 54 L 157/88 100 01/08/21 17:19 54 L 100 01/08/21 17:15 55 L 153/90 01/08/21 17:14 54 L 100 01/08/21 17:09 54 L 100 01/08/21 17:04 59 L 97 01/08/21 17:01 54 L 89 01/08/21 16:59 58 L 100 01/08/21 16:54 55 L 100 01/08/21 16:50 61 88 01/08/21 16:49 51 L 99 01/08/21 16:44 61 99 01/08/21 16:39 56 L 99 01/08/21 16:34 52 L 100 01/08/21 16:33 57 L 91 01/08/21 16:32 18 01/08/21 16:29 52 L 99 01/08/21 16:27 58 L 91 01/08/21 16:26 48 L 153/90 01/08/21 16:24 64 99 01/08/21 16:19 55 L 100 01/08/21 16:16 49 L 91 01/08/21 16:14 69 100 01/08/21 16:09 66 100 01/08/21 16:05 57 L 141/92 01/08/21 16:04 60 100 01/08/21 16:01 63 92 01/08/21 15:59 64 100 01/08/21 15:54 56 L 100 01/08/21 15:49 54 L 99 01/08/21 15:44 52 L 100 01/08/21 15:39 51 L 100 01/08/21 15:34 55 L 100 01/08/21 15:29 53 L 100 01/08/21 15:26 48 L 145/84 01/08/21 15:24 50 L 100 01/08/21 15:19 51 L 14 99 01/08/21 15:14 54 L 100 01/08/21 15:09 47 L 100 01/08/21 15:04 62 100 01/08/21 14:59 57 L 100 01/08/21 14:54 67 100 01/08/21 14:49 56 L 100 01/08/21 14:44 49 L 99 01/08/21 14:43 48 L 137/79 01/08/21 14:41 53 L 89 01/08/21 14:39 55 L 100 01/08/21 14:34 51 L 100 01/08/21 14:29 49 L 100 01/08/21 14:26 55 L 156/85 01/08/21 14:24 59 L 99 01/08/21 14:19 66 96 01/08/21 14:14 47 L 95 01/08/21 14:10 14 01/08/21 14:09 50 L 100 01/08/21 14:04 49 L 100 01/08/21 13:59 51 L 100 01/08/21 13:54 50 L 99 01/08/21 13:49 51 L 98 01/08/21 13:44 49 L 100 01/08/21 13:39 50 L 98 01/08/21 13:34 54 L 99 01/08/21 13:29 53 L 100 01/08/21 13:24 57 L 100 01/08/21 13:23 60 114/77 01/08/21 13:19 64 100 01/08/21 13:14 57 L 100 01/08/21 13:11 67 87 01/08/21 13:09 56 L 100 01/08/21 13:04 53 L 100 01/08/21 12:59 53 L 100 01/08/21 12:54 53 L 100 01/08/21 12:53 51 L 151/88 01/08/21 12:49 54 L 100 01/08/21 12:44 54 L 100 01/08/21 12:39 53 L 99 01/08/21 12:34 57 L 100 01/08/21 12:29 61 97 01/08/21 12:26 51 L 166/90 01/08/21 12:24 52 L 99 01/08/21 12:20 66 93 01/08/21 12:19 53 L 100 01/08/21 12:14 52 L 100 01/08/21 12:09 54 L 100 01/08/21 12:04 57 L 100 01/08/21 12:00 53 L 94 01/08/21 11:59 61 100 01/08/21 11:54 55 L 100 01/08/21 11:53 53 L 156/94 01/08/21 11:52 54 L 171/101 01/08/21 11:49 57 L 100 01/08/21 11:44 60 100 01/08/21 11:39 51 L 100 01/08/21 11:34 57 L 98 01/08/21 11:29 52 L 100 01/08/21 11:24 56 L 100 01/08/21 11:19 51 L 100 01/08/21 11:14 57 L 100 01/08/21 11:09 51 L 100 01/08/21 11:04 53 L 100 01/08/21 10:59 56 L 100 01/08/21 10:55 60 18 144/91 100 01/08/21 10:05 97.5 F L 66 18 140/96 100 01/08/21 10:00 66 18 140/96 100 01/08/21 09:45 61 17 148/97 100 01/08/21 09:30 56 L 15 139/95 100 01/08/21 09:15 66 16 136/82 100 01/08/21 09:05 66 15 139/87 100 01/08/21 09:00 76 18 144/96 100 01/08/21 08:57 97.4 F L 72 17 139/87 100 Intake and Output 01/08/21 01/08/21 01/09/21 15:59 23:59 07:59 Intake Total 300 50 Output Total 1070 1450 1700 Balance -770 -1400 -1700 Intake: IV 300 50 ANCEF/NS 1 GM/50 ML 1 gm 50 In 50 ml @ 100 mls/hr IV [facility] Rx#:[id number] Output: Urine 1070 1450 1700 Indwelling Catheter 770 1450 1700 Other: Total, Output Amount 450 200 300 Estimated Blood Loss 500 - Exam Breasts: Present: normal Cardiovascular: Present: Regular rate Lungs: Present: Clear to auscultation, Normal air movement Abdomen: Present: distention Vulva: both: normal Uterus: Present: normal, firm, fundal height below umbilicus Extremities: Present: normal Deep Tendon Reflex Grade: Normal +2 Incision: Present: normal, dry, intact - Labs Labs: Abnormal lab results 01/08/21 01/08/21 01/08/21 Range/Units 12:20 13:31 18:22 Magnesium 3.80 H (1.7-2.3) mg/dL Lactate Dehydrogenase 261 H (91-180) units/L Urine pH 8.0 H (5.0-7.0) 01/09/21 Range/Units 00:12 Magnesium 4.50 H (1.7-2.3) mg/dL Lactate Dehydrogenase (91-180) units/L Urine pH (5.0-7.0)
[2021-01-09] MEDS: SIMETHICONE 80 MG CHEW TAB PO PRN (07:47)
[2021-01-09] MEDS: LACTATED RINGERS 1,000 ML IV SCH (07:49)
[2021-01-09] MEDS: FERROUS SULFATE 325 MG TAB PO SCH (10:32)
[2021-01-09] MEDS: IBUPROFEN 800 MG TAB PO PRN (14:58)
--- NOTE | 2021-01-09 15:11 | Post Anesthesia Evaluation ---
- Post Anesthesia Evaluation Patient Participated: Yes Airway Patent: Yes Stable Respiratory Function: Yes Nausea/Vomiting: No Temp > 96.8F: Yes Pain Manageable: Yes Adequeate Hydration: Yes Anesthesia Complications: No Block Receding Appropriately: Yes
[2021-01-10] MEDS: IBUPROFEN 800 MG TAB PO PRN (03:28)
--- NOTE | 2021-01-10 09:20 | Discharge Summary ---
Providers - Providers Date of Admission: 01/08/21 05:15 Date of discharge: 01/10/21 (Pt desires to go home. ) Attending physician: SATURNINO BILL 01/08/21 15:31 Consult to Casing Cooker [CONS] Routine Reason For Exam: Primary care physician: SATURNINO BILL Hospitalization Reason for admission: section Delivery: Procedure: repeat low transverse Episiotomy: none Laceration: none Incision: normal, dry, intact Other procedures: none (Pre eclampsia, Post magnesium infusion. ) complications: other (Pre ) Discharge diagnosis: IUP at term delivered baby: female Pertinent studies: Pt denies SEGAL, blurred vision, spots before her eyes, chest pain, shortness of breath, and upper abdominal pain. We discussed how to take a proper blood pressure at home with a wrist cuff. We discussed if any of the above symptoms and/or she has a blood pressure of 140/90 or above, she should occur to call the still operator batch or continuous provider immediately and go to [facility] ER for an evaluation. We also discussed how to take her Labetalol at home and to continue taking it until she can be evaluated at her blood pressure check and visit. Pt verbalized understanding. Hospital course: S: Pt doing well. Some soreness when moving. Ambulating, voiding, and passing flatus okay. Denies Pre E s/sx. BC: Undecided. O: VSS. BP ranges are 114-140's/60-80's. Fundus firm, minimal bleeding noted. H/H 11.3/32.4. Incision open to air, intact, no drainage or s/sx of infection noted. A: 30 y.o. s/p rpt at term. S/p magnesium infusion d/t pre eclampisa. In good condition and can be discharged home. P: Discharge home with instructions. Pt to schedule an incision check and blood pressure check in the office in 1 week. Condition at discharge: Good Disposition: DC-01 TO HOME OR SELFCARE Plan - Discharge Medications Prescriptions: Docusate Sodium [Colace] 100 mg PO BID PRN #60 capsule PRN Reason: Constipation Ferrous Sulfate [Feosol 325 MG tab] 325 mg PO BID #60 tablet labetaloL [Labetalol 200mg TAB] 200 mg PO BID #60 tablet Ibuprofen [Motrin 800 MG tab] 800 mg PO Q8H PRN #30 tablet PRN Reason: Pain oxyCODONE /ACETAMINOPHEN [Percocet 5/325 mg] 1 - 2 tab PO Q6HR PRN #20 tablet PRN Reason: Pain - Provider Discharge Summary Activity: routine, no sex for 6 weeks, no heavy lifting 4 weeks, no strenuous exercise Diet: routine Instructions: routine Additional instructions: [] Smoking cessation referral if applicable(refer to patient education folder for contact #) [] Refer to [facility] Booklet Call your doctor immediately for: * Fever > 100.5 * Heavy vaginal bleeding ( >1 pad per hour) * Severe persistent headache * Shortness of breath * Reddened, hot, painful area to leg or breast * Drainage or odor from incision. * Keep incision clean and dry at all times and follow doctor's instructions regarding bathing/showering Congratulations! Please schedule an incision check in the office in 1 week. If you have any questions or concerns after discharge, please do not hesitate to call the office at [phone]. Taking your blood pressure at home Please take your blood pressure at least once daily Take your blood pressure medication as written by your provider Taking your blood pressure with a wrist monitor: 1. Put the blood pressure cuff on your wrist. Make sure it is not on the bone of your wrist. 2. Sit with your legs uncrossed and feet flat on the ground. 3. Wait 5-10 minutes before taking your blood pressure. 4. If you wrist monitor requires you to put your arm across your chest: After 5-10 minutes, put your arm across your chest like you are about to say the pledge of allegiance. While you are at home, if you experience a headache, blurred vision, spots before your eyes, chest pain, shortness of breath, and pain in your upper belly, and/or your blood pressure is 140/90 or greater please call the on-call provider immediately. - Follow up plan Follow up: SATURNINO BILL MD [Primary Care Provider] - 7 Days Forms: [facility] Discharge Summary
[2021-01-10] MEDS: FERROUS SULFATE 325 MG TAB PO SCH (09:34)
[2021-01-10] MEDS: HYDROcodone/ACETAMINOPHEN 5-325 MG TAB PO PRN (12:25)
[2021-01-10 12:51] VITALS: BP 132/82
== END 2021-01-10 13:45 | disposition home or self-care (01) | DRG 788 ==
LOC: APU 05:15 → LD 10:15 → OB 01-09 14:49
PROVIDERS: ADMIT Obstetrics & Gynecology; ATTEND Obstetrics & Gynecology
PROC: 10D00Z1 Extraction of Products of Conception, Low, Open Approach (ICD-10-PCS; principal; 2021-01-08)
PROC: 3E0R3BZ Introduction of Anesthetic Agent into Spinal Canal, Percutaneous Approach (ICD-10-PCS; 2021-01-08)
DX: O34.211 Maternal care for low transverse scar from previous cesarean delivery (principal); Z3A.39 39 weeks gestation of pregnancy; Z37.0 Single live birth; O99.892 Other specified diseases and conditions complicating childbirth; N73.6 Female pelvic peritoneal adhesions (postinfective); Z20.822 Contact with and (suspected) exposure to COVID-19
CPT/HCPCS: 36415; 81001; 82565; 83615; 83735; 84450; 84460; 84550; 85014; 85018; 85025; 86850; 86900; 86901; G0378; C1765; J0690; J1885; J2405; J2765; J3475; J7120; U0003